=== PATIENT | male | born 1980 | race Caucasian/White ===

== ENCOUNTER 2023-04-21 13:24 | Emergency (ER) | payer OTHER ==
[2023-04-21 13:38] VITALS: BP 129/76
--- NOTE | 2023-04-21 13:57 | ED Physician Documentation ---
PD HPI LOWER EXT INJURY - Stated complaint Stated Complaint: RT FT INJ - Chief complaint Chief Complaint: Trauma Ext - History obtained from History obtained from: Patient - History of Present Illness PD HPI LOW EXT INJURY LOCATION: Right, Foot Type of injury: Twist (stepped wrong on STEP AND Hd inversion injury injury of ankle, with pain lateral foot and 5th MT area. Has bruising showing this morning.) Where injury occurred: Home Timing - onset: Last night Timing - details: Abrupt onset, Still present Improved by: Rest Worsened by: Moving, Palpating Associated symptoms: Swelling, Discolored. No: Weakness, Numbness Similar symptoms before: Has not had sx before Review of Systems Skin: denies: Abrasion (s), Laceration (s) Neurologic: denies: Focal weakness, Numbness PD PAST MEDICAL HISTORY - Past Medical History Endocrine/Autoimmune: None Musculoskeletal: None - Present Medications Home Medications: Ambulatory Orders Medication Instructions Recorded Confirmed Montelukast [Singulair] 10 mg PO DAILY 04/21/23 04/21/23 - Allergies Allergies/Adverse Reactions: Allergies Allergy/AdvReac Type Severity Reaction Status Date / Time iodine Allergy Itching Verified 04/21/23 13:35 PD ED PE NORMAL - Vitals Vital signs reviewed: Yes - General General: Alert and oriented X 3, No acute distress, Well developed/nourished - Derm Derm: Normal color, Warm and dry - Extremities Extremities: Other (right foot and ankle with swelling and tenderness proximal anterolateral foot in area of ATFL ligament but also tender some at base of 5th MT. Bruising and swelling noted in the area. ) - Neuro Neuro: No motor deficit, No sensory deficit Results - Vitals Vitals: Vital Signs - 24 hr 04/21/23 13:33 Temperature 36.5 C Heart Rate 77 Respiratory 16 Rate Blood Pressure 129/76 O2 Saturation 97 Oxygen O2 Source Room air - Rads (name of study) right ankle/foot Relevant Findings:: Prelim report reviewed, EMP independent interpretation of test (no fractures), See rad report PD Medical Decision Making - ED course Complexity details: reviewed results (no fractures, but with swelling and tenderness c/w likely partial ligament tear. Will give ankle splinting. He declined crutches. ), considered differential (lateral ankle/foot sprain but tender at prox 5th MT, so will get xray toe christopher for fracture. ), d/w patient Departure - Departure Disposition: Home, Self Care Clinical Impression: Foot sprain Qualifiers: Encounter type: initial encounter Laterality: right Qualified Code(s): S93.601A - Unspecified sprain of right foot, initial encounter Condition: Stable Record reviewed to determine appropriate education?: Yes Instructions: ED Sprain Foot Comments: Your x-ray is appear normal without any signs of fractures nor dislocations. You obviously still have an injury of the foot and presume some partial tearing of one of the muscles or ligaments on the outside of the foot and ankle. Support of the ankle we will help with this as that is the motion that we will put stress on that area. Activity as tolerated. I would expect this to improve over several days to even a week or 2 given the bruising, which suggest at least a partial tear of some soft tissue such as ligament. Rest elevate and cool towels to the area to minimize swelling today and tomorrow. Use the ankle brace when up and around to help support motion through that area. Tylenol ibuprofen as needed for pains. Discharge Date/Time: 04/21/23 14:46
--- NOTE | 2023-04-21 14:49 | XRAY Report ---
PROCEDURE: Foot 3 View RT INDICATIONS: Trauma TECHNIQUE: 3 views of the foot were acquired. COMPARISON: None. FINDINGS: Bones: No fractures or dislocations. No suspicious bony lesions. Soft tissues: No suspicious soft tissue calcifications or masses. IMPRESSION: Intact right foot. Reviewed by: Yesenia Schaeffer MD on 04/21/2023 1:48 PM [facility] Approved by: Yesenia Schaeffer MD on 04/21/2023 1:48 PM [facility] Station ID: [id number]
== END 2023-04-21 14:46 | disposition home or self-care (01) ==
LOC: ED 13:24
DX: S93.601A Unspecified sprain of right foot, initial encounter (principal); X50.1XXA Overexertion from prolonged static or awkward postures, initial encounter; Y93.89 Activity, other specified; Y92.008 Other place in unspecified non-institutional (private) residence as the place of occurrence of the external cause
CPT/HCPCS: 99283